=== PATIENT | male | born 1970 | race Asian ===

== ENCOUNTER → 2018-12-09 | Outpatient (CLI) | payer BC ==
[~2018-12-09] MED LIST: NO HOME MEDS; ONDA4TAB35 PO; VALS40TA2
== END | disposition home or self-care (01) ==
LOC: LAB 12-08 08:10
PROVIDERS: ATTEND Internal Medicine
DX: R73.03 Prediabetes (principal); E78.5 Hyperlipidemia, unspecified; E03.9 Hypothyroidism, unspecified; M47.897 Other spondylosis, lumbosacral region
CPT/HCPCS: 80053; 80061; 81003; 83036; 84436; 84443; 85025